=== PATIENT | female | born 1945 | race Hispanic/Latino ===

== ENCOUNTER 2017-09-04 22:42 | Inpatient (IN) | payer OTHER ==
[~2017-09-04] VITALS: Ht 172.7 cm; Wt 79.9 kg
[~2017-09-04 22:42] MED LIST: ASPI-1181 PO; BUDE10.22 IH; Losartan Potassium PO; METO50 PO; NITR0.4T50 SL; PANT40TA25 PO; PRAV20TA4 PO; VERA180T8 PO
[2017-09-04] MEDS ORDERED: ASPIRIN 325 MG TABLET ONE (23:07)
[2017-09-04] MEDS ORDERED: MECLIZINE HCL 25 MG TABLET ONE (23:07)
[2017-09-04] MEDS ORDERED: ONDANSETRON ODT 4 MG TAB ONE (23:07)
[2017-09-04 23:11] LABS: BASOPHILS % (AUTO) 0.6 % (0.0-5.0); EOSINOPHILS % (AUTO) 3.3 % (0.0-8.0); HEMATOCRIT 38.9 % (36-48); LYMPHOCYTES % (AUTO) 41.4 % (21.0-51.0); MEAN CORPUSCULAR HEMOGLOBIN 30.5 pg (27.0-33.0); MEAN CORPUSCULAR HGB CONC 34.1 g/dL (32.0-36.0); MEAN CORPUSCULAR VOLUME 89.5 fL (79-99); MONOCYTES % (AUTO) 12.3 % (3.0-13.0); NEUTROPHILS % (AUTO) 42.4 % (40.0-77.0); PLATELET COUNT (AUTO) 199 K/uL (130-400); RED BLOOD CELL COUNT(AUTO) 4.35 MIL/uL (4.00-5.50); RED CELL DISTRIBUTION WIDTH 13.7 % (11.0-15.5); WHITE BLOOD COUNT (AUTO) 6.5 K/uL (4.8-10.8)
[2017-09-04 23:25] LABS: CREATININE 0.8 mg/dL (0.5-1.5); INR 0.99 (0.85-1.15); PARTIAL THROMBOPLASTIN TIME 24.9 SEC (26.3-35.5); POTASSIUM 3.9 mmol/L (3.5-5.1); PROTHROMBIN TIME 10.4 SEC (9.6-11.6)
[2017-09-04 23:30] LABS: ALBUMIN 4.1 g/dL (3.5-5.0); BILIRUBIN,TOTAL 0.5 mg/dL (0.2-1.0); TOTAL PROTEIN, SERUM 7.6 g/dL (6.0-8.3)
[2017-09-04 23:33] LABS: B-TYPE NATRIURETIC PEPTIDE 388 pg/mL (0-100)
[2017-09-04 23:35] LABS: APPEARANCE,URINE Clear (CLEAR); BILIRUBIN,URINE Negative (NEGATIVE); COLOR,URINE Yellow (YELLOW); GLUCOSE, URINE (UA) Negative (NEGATIVE); KETONES,URINE Negative (NEGATIVE); LEUKOCYTE ESTERASE ,URINE Trace (NEGATIVE); NITRATE,URINE Negative (NEGATIVE); OCCULT BLOOD,URINE Negative (NEGATIVE); PROTEIN,URINE Negative (NEGATIVE)
[2017-09-04 23:49] LABS: RAPID GROUP A STREP NEGATIVE (NEGATIVE)
[2017-09-04 23:50] LABS: RBC,URINE 0-1 /HPF (0-1); WBC,URINE 0-1 /HPF (0-1)
[2017-09-04 23:51] LABS: BACTERIA,URINE Rare /HPF (None Seen)
[2017-09-05 04:15] VITALS: BP 158/83
[2017-09-05] MEDS ORDERED: PRAV40TA3 PO (04:52)
[2017-09-05] MEDS ORDERED: SODIUM CHLORIDE 0.9% 1000ML 1,000 ML IV SCH (07:08)
[2017-09-05] MEDS ORDERED: LACTULOSE 20 GM/30 ML UDCUP PO PRN (07:15)
[2017-09-05] MEDS ORDERED: ACETAMINOPHEN 325 MG TAB PO PRN ×2 (07:15)
[2017-09-05] MEDS ORDERED: MAG HYDROX/AL HYDROX/SIMETH ES 30 ML SUSP UDCUP PO PRN (07:15)
[2017-09-05] MEDS ORDERED: PANTOPRAZOLE SODIUM 40 MG TABLET.DR PO PRN (07:15)
[2017-09-05] MEDS ORDERED: ONDANSETRON HCL 4 MG/2 ML VIAL IV PRN (07:15)
[2017-09-05] MEDS ORDERED: NITROGLYCERIN 0.4 MG SL TAB SL PRN (07:15)
[2017-09-05 08:19] VITALS: BP 154/78
[2017-09-05 08:27] LABS: CREATINE KINASE MB 0.8 ng/mL (0.5-3.6); TROPONIN I 0.21 ng/mL (0.00-0.06)
[2017-09-05] MEDS ORDERED: LIDOCAINE HCL-MPF 1% 2ML VIAL IVP PRN (08:45)
[2017-09-05] MEDS ORDERED: POTASSIUM CHLORIDE 10% ELIXIR 20 MEQ/15 ML UDCUP PO PRN (08:45)
[2017-09-05] MEDS ORDERED: POTASSIUM CHLORIDE 20MEQ/100ML 100 ML IV PRN (08:45)
[2017-09-05] MEDS ORDERED: VERAPAMIL HCL 180 MG PO SCH (09:00)
[2017-09-05] MEDS ORDERED: LOSARTAN 100 MG TABLET PO SCH (09:00)
[2017-09-05] MEDS: ASPIRIN 81 MG EC TAB PO SCH (10:07)
[2017-09-05] MEDS: METOPROLOL TARTRATE 50 MG TAB PO SCH ×2 (10:07→21:01)
[2017-09-05] MEDS: ENOXAPARIN SODIUM 30 MG/0.3 ML SQ SCH (10:09)
[2017-09-05 12:16] VITALS: BP 153/89
[2017-09-05 14:38] LABS: CREATINE KINASE MB 0.8 ng/mL (0.5-3.6); TROPONIN I 0.22 ng/mL (0.00-0.06)
[2017-09-05] MEDS ORDERED: REGADENOSON 0.4 MG/5 ML PF SYG IVP SCH (15:00)
[2017-09-05 16:45] VITALS: BP 150/80
[2017-09-05] MEDS: ATORVASTATIN CALCIUM 20 MG TABLET PO SCH (17:03)
[2017-09-05 20:00] VITALS: BP 118/63
[2017-09-06] VITALS (13 sets, daily range): BP systolic 126–169; BP diastolic 63–85
[2017-09-06 05:50] LABS: CREATININE 0.8 mg/dL (0.5-1.5); POTASSIUM 4.1 mmol/L (3.5-5.1)
[2017-09-06] MEDS: METOPROLOL TARTRATE 50 MG TAB PO SCH ×2 (09:00→20:46)
[2017-09-06] MEDS: ENOXAPARIN SODIUM 30 MG/0.3 ML SQ SCH (09:00)
[2017-09-06] MEDS: ASPIRIN 81 MG EC TAB PO SCH (09:00)
[2017-09-06] MEDS: AMLODIPINE BESYLATE 5 MG TAB PO SCH (09:00)
[2017-09-06] MEDS ORDERED: NITROGLYCERIN 5 MG/ML 10 ML VIAL IV ONE (14:32)
[2017-09-06] MEDS ORDERED: ISOVUE-370 50ML VIAL IV ONE (14:32)
[2017-09-06] MEDS ORDERED: HEPARIN SODIUM 1000UNIT/ML 10ML VIAL ONE (14:32)
[2017-09-06] MEDS ORDERED: IOPAMIDOL-370 100 ML VIAL IV ONE (14:32)
[2017-09-06] MEDS ORDERED: SODIUM BICARB 50MEQ 50ML VIAL ONE (14:32)
[2017-09-06] MEDS ORDERED: LIDOCAINE HCL 2% 20ML ONE (14:33)
[2017-09-06] MEDS ORDERED: MIDAZOLAM HCL 1 MG/ML 2ML VIAL ONE (15:26)
[2017-09-06] MEDS ORDERED: MEPERIDINE-PF 50 MG/ML SYG ONE (15:26)
[2017-09-06] MEDS ORDERED: LABETALOL 20 MG/4 ML DISP.SYRIN IV ONE (15:36)
[2017-09-06] MEDS ORDERED: FURO40TA7 PO (16:33)
[2017-09-06] MEDS ORDERED: SPIR25TA PO (16:33)
[2017-09-06] MEDS ORDERED: Losartan Potassium PO (16:33)
[2017-09-06] MEDS: ATORVASTATIN CALCIUM 20 MG TABLET PO SCH (16:59)
[2017-09-06] MEDS: SPIRONOLACTONE 25 MG TAB PO SCH (20:46)
[2017-09-07] VITALS (10 sets, daily range): BP systolic 96–160; BP diastolic 57–90
[2017-09-07 05:53] LABS: HEMATOCRIT 36.7 % (36-48); MEAN CORPUSCULAR HEMOGLOBIN 31.7 pg (27.0-33.0); MEAN CORPUSCULAR HGB CONC 35.7 g/dL (32.0-36.0); MEAN CORPUSCULAR VOLUME 88.8 fL (79-99); PLATELET COUNT (AUTO) 156 K/uL (130-400); RED BLOOD CELL COUNT(AUTO) 4.14 MIL/uL (4.00-5.50); RED CELL DISTRIBUTION WIDTH 13.8 % (11.0-15.5); WHITE BLOOD COUNT (AUTO) 4.8 K/uL (4.8-10.8)
[2017-09-07 05:58] LABS: CREATININE 0.7 mg/dL (0.5-1.5); POTASSIUM 3.6 mmol/L (3.5-5.1)
[2017-09-07] MEDS: POTASSIUM CHLORIDE 20 MEQ ERTAB PO PRN ×2 (06:24→08:39)
[2017-09-07] MEDS: METOPROLOL TARTRATE 50 MG TAB PO SCH ×2 (08:39→19:22)
[2017-09-07] MEDS: FUROSEMIDE 40 MG TABLET PO SCH (08:39)
[2017-09-07] MEDS: AMLODIPINE BESYLATE 5 MG TAB PO SCH (08:39)
[2017-09-07] MEDS: LOSARTAN 50 MG TABLET PO SCH (08:39)
[2017-09-07] MEDS: SPIRONOLACTONE 25 MG TAB PO SCH ×2 (08:39→19:22)
[2017-09-07] MEDS: ASPIRIN 81 MG EC TAB PO SCH (08:39)
[2017-09-07] MEDS: ATORVASTATIN CALCIUM 20 MG TABLET PO SCH (16:13)
[2017-09-08 04:22] VITALS: BP 141/71
[2017-09-08 07:00] VITALS: BP 154/72
[2017-09-08] MEDS: ASPIRIN 81 MG EC TAB PO SCH (09:10)
[2017-09-08] MEDS: SPIRONOLACTONE 25 MG TAB PO SCH (09:11)
[2017-09-08] MEDS: METOPROLOL TARTRATE 50 MG TAB PO SCH (09:11)
[2017-09-08] MEDS: FUROSEMIDE 40 MG TABLET PO SCH (09:11)
[2017-09-08] MEDS: LOSARTAN 50 MG TABLET PO SCH (09:11)
[2017-09-08] MEDS: AMLODIPINE BESYLATE 5 MG TAB PO SCH (09:12)
[2017-09-08 11:00] VITALS: BP 125/56
== END 2017-09-08 13:20 | disposition home or self-care (01) | DRG 287 ==
LOC: EDH 22:42 → OBSVTOIN 09-05 02:48 → EDHIP 09-05 02:48 → 4AH 09-05 03:53
PROVIDERS: ADMIT Internal Medicine; ATTEND Internal Medicine
PROC: 4A023N7 Measurement of Cardiac Sampling and Pressure, Left Heart, Percutaneous Approach (ICD-10-PCS; principal; 2017-09-06)
PROC: B2151ZZ Fluoroscopy of Left Heart using Low Osmolar Contrast (ICD-10-PCS; 2017-09-06)
PROC: B2111ZZ Fluoroscopy of Multiple Coronary Arteries using Low Osmolar Contrast (ICD-10-PCS; 2017-09-06)
DX: I25.119 Atherosclerotic heart disease of native coronary artery with unspecified angina pectoris (principal); E88.81 Metabolic syndrome and other insulin resistance; G62.9 Polyneuropathy, unspecified; I42.9 Cardiomyopathy, unspecified; I48.3 Typical atrial flutter; I48.91 Unspecified atrial fibrillation; E66.9 Obesity, unspecified; E78.2 Mixed hyperlipidemia; I48.92 Unspecified atrial flutter; I13.10 Hypertensive heart and chronic kidney disease without heart failure, with stage 1 through stage 4 chronic kidney disease, or unspecified chronic kidney disease; M81.0 Age-related osteoporosis without current pathological fracture; J45.909 Unspecified asthma, uncomplicated; N18.9 Chronic kidney disease, unspecified; Z68.26 Body mass index [BMI] 26.0-26.9, adult; I25.2 Old myocardial infarction; Z82.3 Family history of stroke; Z82.49 Family history of ischemic heart disease and other diseases of the circulatory system; Z90.710 Acquired absence of both cervix and uterus
CPT/HCPCS: 36415; 71045; 78452; 80048; 80053; 81001; 82550; 82553; 83605; 83874; 83880; 84132; 84484; 85025; 85027; 85610; 85730; 87804; 87880; 93005; 93017; 93306; 93458; 96374; 99152; 99153; A9500; C1760; C1894; J1644; J1650; J2175; J2250; J2785; J3490; J7030; Q9967

== ENCOUNTER → 2017-12-19 | Outpatient (CLI) | payer OTHER ==
[~2017-12-19] MED LIST changes: -BUDE10.22 IH; +FURO40TA7 PO; +MECL12.585 PO; -PRAV20TA4 PO; +PRAV40TA3 PO; +SPIR25TA PO; -VERA180T8 PO
== END | disposition home or self-care (01) ==
LOC: SHCH 10:00
PROVIDERS: ATTEND Internal Medicine Cardiovascular Disease
DX: I42.0 Dilated cardiomyopathy (principal)
CPT/HCPCS: 93306

== ENCOUNTER 2017-12-20 20:27 | Observation (INO) | payer OTHER ==
[~2017-12-20] VITALS: Ht 157.5 cm; Wt 80.4 kg
[~2017-12-20 20:27] MED LIST changes: -MECL12.585 PO
[2017-12-20] MEDS ORDERED: MECLIZINE HCL 25 MG TABLET ONE (21:00)
[2017-12-20 21:28] LABS: CREATININE 1.1 mg/dL (0.5-1.5); POTASSIUM 4.1 mmol/L (3.5-5.1)
[2017-12-20 21:33] LABS: ALBUMIN 4.2 g/dL (3.5-5.0); BILIRUBIN,TOTAL 0.5 mg/dL (0.2-1.0); TOTAL PROTEIN, SERUM 7.9 g/dL (6.0-8.3)
[2017-12-20 21:53] LABS: BASOPHILS % (AUTO) 1.7 % (0.0-5.0); EOSINOPHILS % (AUTO) 1.5 % (0.0-8.0); LYMPHOCYTES % (AUTO) 21.6 % (21.0-51.0); MEAN CORPUSCULAR HEMOGLOBIN 32.4 pg (27.0-33.0); MEAN CORPUSCULAR HGB CONC 34.9 g/dL (32.0-36.0); MEAN CORPUSCULAR VOLUME 92.8 fL (79-99); MONOCYTES % (AUTO) 9.8 % (3.0-13.0); NEUTROPHILS % (AUTO) 65.4 % (40.0-77.0); NUCLEATED RED BLOOD CELLS 0.1 % (0.0-0.19); PLATELET COUNT (AUTO) 172 K/uL (130-400); RED BLOOD CELL COUNT(AUTO) 3.98 MIL/uL (4.00-5.50); RED CELL DISTRIBUTION WIDTH 13.6 % (11.0-15.5); WHITE BLOOD COUNT (AUTO) 4.3 K/uL (4.8-10.8)
[2017-12-21 00:41] LABS: CREATINE KINASE MB 1.1 ng/mL (0.5-3.6); TROPONIN I 0.14 ng/mL (0.00-0.06)
[2017-12-21] MEDS: SODIUM CHLORIDE 0.9% 1000ML 1,000 ML IV SCH ×3 (01:00→23:42)
[2017-12-21] MEDS ORDERED: NITROGLYCERIN 0.4 MG SL TAB SL PRN (01:00)
[2017-12-21] MEDS ORDERED: LACTULOSE 20 GM/30 ML UDCUP PO PRN (01:00)
[2017-12-21] MEDS ORDERED: ONDANSETRON HCL 4 MG/2 ML VIAL IVP PRN (01:00)
[2017-12-21] MEDS ORDERED: POTASSIUM CHLORIDE 20 MEQ ERTAB PO PRN (01:00)
[2017-12-21] MEDS ORDERED: ACETAMINOPHEN 325 MG TAB PO PRN ×2 (01:00)
[2017-12-21] MEDS ORDERED: POTASSIUM CHLORIDE 20MEQ/100ML 100 ML IV PRN ×2 (01:00→02:15)
[2017-12-21] MEDS ORDERED: POTASSIUM CHLORIDE 10% ELIXIR 20 MEQ/15 ML UDCUP PO PRN (01:00)
[2017-12-21] MEDS ORDERED: CLONIDINE HCL 0.1 MG TABLET PO PRN (01:00)
[2017-12-21] MEDS ORDERED: HYDRALAZINE HCL 20 MG/ML VIAL IV PRN (02:15)
[2017-12-21] MEDS ORDERED: MECLIZINE HCL 25 MG TABLET PO PRN (02:15)
[2017-12-21] MEDS ORDERED: LIDOCAINE HCL-MPF 1% 2ML VIAL IVP PRN (02:15)
[2017-12-21 05:40] LABS: HEMATOCRIT 34.4 % (36-48); MEAN CORPUSCULAR HEMOGLOBIN 32.3 pg (27.0-33.0); MEAN CORPUSCULAR HGB CONC 35.2 g/dL (32.0-36.0); MEAN CORPUSCULAR VOLUME 91.6 fL (79-99); NUCLEATED RED BLOOD CELLS 0.1 % (0.0-0.19); PLATELET COUNT (AUTO) 146 K/uL (130-400); RED BLOOD CELL COUNT(AUTO) 3.76 MIL/uL (4.00-5.50); RED CELL DISTRIBUTION WIDTH 13.4 % (11.0-15.5); WHITE BLOOD COUNT (AUTO) 4.5 K/uL (4.8-10.8)
[2017-12-21] MEDS ORDERED: SODIUM CHLORIDE 0.9% 1000ML 1,000 ML IV ONE (05:42)
[2017-12-21 05:52] LABS: HEMOGLOBIN A1C 6.2 % (4.0-6.0)
[2017-12-21] MEDS ORDERED: IPRATROPIUM/ALBUTEROL SULFATE 3 ML SOLUTION IH SCH (06:00)
[2017-12-21 06:09] LABS: CREATINE KINASE MB 0.9 ng/mL (0.5-3.6); CREATININE 0.9 mg/dL (0.5-1.5); POTASSIUM 4.1 mmol/L (3.5-5.1); THYROID STIMULATING HORMONE 1.46 uIU/mL (0.36-3.74); TROPONIN I 0.15 ng/mL (0.00-0.06)
[2017-12-21] MEDS ORDERED: IPRATROPIUM/ALBUTEROL SULFATE 3 ML SOLUTION IH PRN (07:06)
[2017-12-21] MEDS ORDERED: MECLIZINE HCL 25 MG TABLET ONE (08:51)
[2017-12-21] MEDS ORDERED: ASPIRIN 325 MG TABLET ONE (08:51)
[2017-12-21] MEDS: FAMOTIDINE 20MG TAB 20 MG TAB PO SCH ×2 (09:00→20:22)
[2017-12-21] MEDS ORDERED: ASPIRIN 325 MG TABLET PO SCH (09:00)
[2017-12-21] MEDS ORDERED: LOSARTAN 50 MG TABLET PO SCH (14:00)
[2017-12-21] MEDS ORDERED: LOSARTAN 50 MG TABLET ONE (14:40)
[2017-12-21] MEDS ORDERED: FAMOTIDINE 20MG TAB 20 MG TAB ONE (14:40)
[2017-12-21 19:23] VITALS: BP 148/61
[2017-12-21] MEDS: METOPROLOL TARTRATE 50 MG TAB PO SCH (20:22)
[2017-12-21] MEDS ORDERED: ATORVASTATIN CALCIUM 20 MG TABLET PO SCH (21:00)
[2017-12-21 23:37] VITALS: BP 158/67
[2017-12-22 03:46] VITALS: BP 135/66
[2017-12-22 03:52] LABS: BASOPHILS % (AUTO) 0.9 % (0.0-5.0); EOSINOPHILS % (AUTO) 2.6 % (0.0-8.0); HEMATOCRIT 34.9 % (36-48); LYMPHOCYTES % (AUTO) 31.7 % (21.0-51.0); MEAN CORPUSCULAR HEMOGLOBIN 33.6 pg (27.0-33.0); MEAN CORPUSCULAR HGB CONC 36.6 g/dL (32.0-36.0); MEAN CORPUSCULAR VOLUME 91.7 fL (79-99); NEUTROPHILS % (AUTO) 51.8 % (40.0-77.0); NUCLEATED RED BLOOD CELLS 0.1 % (0.0-0.19); PLATELET COUNT (AUTO) 155 K/uL (130-400); RED CELL DISTRIBUTION WIDTH 13.7 % (11.0-15.5); WHITE BLOOD COUNT (AUTO) 4.4 K/uL (4.8-10.8)
[2017-12-22 04:23] LABS: CREATINE KINASE MB 0.8 ng/mL (0.5-3.6); CREATININE 0.8 mg/dL (0.5-1.5); POTASSIUM 4.5 mmol/L (3.5-5.1); TROPONIN I 0.16 ng/mL (0.00-0.06)
[2017-12-22 07:00] VITALS: BP 128/57
[2017-12-22] MEDS ORDERED: METOPROLOL TARTRATE 50 MG TAB PO SCH (09:00)
[2017-12-22] MEDS ORDERED: SPIRONOLACTONE 25 MG TAB PO SCH (09:00)
[2017-12-22] MEDS ORDERED: PANTOPRAZOLE SODIUM 40 MG TABLET.DR PO PRN (09:00)
[2017-12-22] MEDS ORDERED: ASPIRIN 325 MG TABLET PO SCH (09:00)
[2017-12-22] MEDS ORDERED: FUROSEMIDE 40 MG TABLET PO SCH (09:00)
[2017-12-22] MEDS ORDERED: LOSARTAN 50 MG TABLET PO SCH (09:00)
[2017-12-22] MEDS ORDERED: NITROGLYCERIN 0.4 MG SL TAB SL PRN (09:00)
[2017-12-22] MEDS ORDERED: ASPIRIN 81 MG EC TAB PO SCH ×2 (09:00)
[2017-12-22] MEDS ORDERED: MECL12.585 PO (09:04)
[2017-12-22] MEDS: FAMOTIDINE 20MG TAB 20 MG TAB PO SCH (09:19)
[2017-12-22] MEDS: METOPROLOL TARTRATE 50 MG TAB PO SCH (09:19)
[2017-12-22 11:00] VITALS: BP 143/68
[2017-12-22] MEDS ORDERED: ATORVASTATIN CALCIUM 20 MG TABLET PO SCH (17:00)
== END 2017-12-22 12:30 | disposition home or self-care (01) ==
LOC: EDH 20:27 → EDHIP 12-21 00:35 → 2AH 12-21 18:40
PROVIDERS: ADMIT Internal Medicine; ATTEND Internal Medicine
DX: H81.10 Benign paroxysmal vertigo, unspecified ear (principal); I13.0 Hypertensive heart and chronic kidney disease with heart failure and stage 1 through stage 4 chronic kidney disease, or unspecified chronic kidney disease; I50.9 Heart failure, unspecified; N18.2 Chronic kidney disease, stage 2 (mild); E78.5 Hyperlipidemia, unspecified; I48.0 Paroxysmal atrial fibrillation; I25.10 Atherosclerotic heart disease of native coronary artery without angina pectoris; I25.2 Old myocardial infarction; K21.9 Gastro-esophageal reflux disease without esophagitis; E88.81 Metabolic syndrome and other insulin resistance; M81.0 Age-related osteoporosis without current pathological fracture; J45.909 Unspecified asthma, uncomplicated; G62.9 Polyneuropathy, unspecified; I25.5 Ischemic cardiomyopathy; I34.0 Nonrheumatic mitral (valve) insufficiency; I48.92 Unspecified atrial flutter; Z82.49 Family history of ischemic heart disease and other diseases of the circulatory system; Z90.710 Acquired absence of both cervix and uterus; Z79.82 Long term (current) use of aspirin; Z79.899 Other long term (current) drug therapy
CPT/HCPCS: 36415 ×3; 80048 ×2; 80053; 80061; 82550 ×3; 82553 ×3; 83036; 83874 ×3; 84443; 84484 ×3; 85025 ×2; 85027; 93005 ×4; 94664; 97116; 97161; 99285; G0378 ×36; G8978; G8979; G8980; G8981; G8982; G8983; J7030

== ENCOUNTER → 2018-07-10 | Outpatient (CLI) | payer OTHER ==
[~2018-07-10] MED LIST changes: +MECL12.585 PO
== END | disposition home or self-care (01) ==
LOC: RAH 13:07
PROVIDERS: ATTEND Internal Medicine
DX: R68.84 Jaw pain (principal); M79.601 Pain in right arm
CPT/HCPCS: 70140; 73090

== ENCOUNTER 2020-09-07 05:59 | Day surgery (SDC) | payer OTHER ==
[2020-09-04 09:13] LABS: BASOPHILS % (AUTO) 0.8 % (0.0-5.0); EOSINOPHILS % (AUTO) 2.6 % (0.0-8.0); HEMATOCRIT 48.1 % (36-48); LYMPHOCYTES % (AUTO) 28.7 % (21.0-51.0); MEAN CORPUSCULAR HEMOGLOBIN 29.6 pg (27.0-33.0); MEAN CORPUSCULAR HGB CONC 32.2 g/dL (32.0-36.0); MEAN CORPUSCULAR VOLUME 91.8 fL (79-99); MONOCYTES % (AUTO) 11.2 % (3.0-13.0); NEUTROPHILS % (AUTO) 56.4 % (40.0-77.0); PLATELET COUNT (AUTO) 144 K/uL (130-400); RED BLOOD CELL COUNT(AUTO) 5.24 MIL/uL (4.00-5.50); RED CELL DISTRIBUTION WIDTH 14.2 % (11.0-15.5); WHITE BLOOD COUNT (AUTO) 3.8 K/uL (4.8-10.8)
[2020-09-04 09:26] LABS: CREATININE 0.9 mg/dL (0.5-1.5); INR 1.09 (0.85-1.15); POTASSIUM 5.1 mmol/L (3.5-5.1); PROTHROMBIN TIME 11.8 SEC (9.6-11.6)
[2020-09-04 11:30] VITALS: BP 139/69
[~2020-09-07] VITALS: Ht 157.5 cm; Wt 78.2 kg
[2020-09-07] VITALS (12 sets, daily range): BP systolic 100–145; BP diastolic 49–79
[~2020-09-07 05:59] MED LIST changes: +ALBU8.5H8 IH; -ASPI-1181 PO; +ASPI-1443 PO; +ATOR20TA65 PO; +FLUT1AER IH; -FURO40TA7 PO; -Losartan Potassium PO; -MECL12.585 PO; -PANT40TA25 PO; +PANT40TA54 PO; +POTA-79 PO; -PRAV40TA3 PO; +SACU1TAB PO
[2020-09-07] MEDS ORDERED: SODIUM CHLORIDE 0.9% 1000ML 1,000 ML IV ONE (06:11)
[2020-09-07] MEDS ORDERED: BUPIVACAINE/PF 0.25% 30ML VIAL IJ ONE (07:17)
[2020-09-07] MEDS ORDERED: IODIXANOL 320 MG/ML 100 ML VIAL ONE (07:18)
[2020-09-07] MEDS ORDERED: MEPERIDINE-PF 25 MG/ML SYG ONE (07:18)
[2020-09-07] MEDS ORDERED: MIDAZOLAM HCL 1 MG/ML 2ML VIAL ONE ×3 (07:18→07:54)
[2020-09-07] MEDS ORDERED: CEFAZOLIN SODIUM 1 GM VIAL ONE (07:18)
[2020-09-07] MEDS ORDERED: LIDOCAINE HCL 1% MDV 50ML VIAL ONE (07:19)
[2020-09-07] MEDS ORDERED: MEPERIDINE-PF 50 MG/ML SYG ONE (07:44)
[2020-09-07] MEDS ORDERED: ACETAMINOPHEN 325 MG TAB ONE (14:51)
[2020-09-07] MEDS ORDERED: CEFAZOLIN SODIUM 1 GM VIAL IVP SCH (15:30)
== END 2020-09-07 16:25 | disposition home or self-care (01) ==
LOC: DAH 05:59
PROVIDERS: ATTEND Internal Medicine Cardiovascular Disease
DX: I42.8 Other cardiomyopathies (principal); I50.42 Chronic combined systolic (congestive) and diastolic (congestive) heart failure; I44.1 Atrioventricular block, second degree; I44.7 Left bundle-branch block, unspecified; I45.10 Unspecified right bundle-branch block; I11.0 Hypertensive heart disease with heart failure; E78.5 Hyperlipidemia, unspecified; I48.92 Unspecified atrial flutter; E66.9 Obesity, unspecified; Z68.32 Body mass index [BMI] 32.0-32.9, adult; Z79.01 Long term (current) use of anticoagulants; Z79.899 Other long term (current) drug therapy; Z79.82 Long term (current) use of aspirin
CPT/HCPCS: 33225; 33249; 36415; 71045; 80048; 85025; 85610; 85730; 93005; A4215; A4216; A4221; A4222; A4223 ×3; A4606; A4663; A6260; C1769 ×3; C1882; C1894; C1895; C1896; C1900; J0690 ×2; J2175 ×2; J2250 ×3; J3490 ×2; J7030; Q9967; 99156; 99157

== ENCOUNTER → 2022-03-29 | Outpatient (CLI) | payer OTHER ==
[~2022-03-29] MED LIST changes: -POTA-79 PO
== END | disposition home or self-care (01) ==
LOC: SHCH 10:44
PROVIDERS: ATTEND Internal Medicine Cardiovascular Disease
DX: I34.0 Nonrheumatic mitral (valve) insufficiency (principal); I50.20 Unspecified systolic (congestive) heart failure; E78.5 Hyperlipidemia, unspecified; E66.9 Obesity, unspecified; I11.0 Hypertensive heart disease with heart failure; I50.22 Chronic systolic (congestive) heart failure
CPT/HCPCS: 93306

== ENCOUNTER → 2022-10-01 | Outpatient (CLI) | payer OTHER | END | disposition home or self-care (01) | LOC: SHCH 09:24 | PROVIDERS: ATTEND Internal Medicine Cardiovascular Disease | DX: I87.2 Venous insufficiency (chronic) (peripheral) (principal); I87.1 Compression of vein | CPT/HCPCS: 93970 ==

== ENCOUNTER 2023-11-10 10:47 | Day surgery (SDC) | payer OTHER ==
[2023-11-06 09:08] LABS: BASOPHILS # (AUTO) 0.02 K/uL (0.00-0.20); BASOPHILS % (AUTO) 0.4 % (0.0-5.0); EOSINOPHILS # (AUTO) 0.08 K/uL (0.00-0.70); EOSINOPHILS % (AUTO) 1.5 % (0.0-8.0); HEMATOCRIT 38.9 % (36-48); IMMATURE GRANULOCYTE ABSOLUTE 0.01 K/uL (0-1); LYMPHOCYTES # (AUTO) 1.4 K/uL (1.0-4.8); LYMPHOCYTES % (AUTO) 26.2 % (21.0-51.0); MEAN CORPUSCULAR HEMOGLOBIN 31.1 pg (27.0-33.0); MEAN CORPUSCULAR HGB CONC 32.6 g/dL (32.0-36.0); MEAN CORPUSCULAR VOLUME 95.1 fL (79-99); MONOCYTES # (AUTO) 0.5 K/uL (0.1-1.0); MONOCYTES % (AUTO) 9.6 % (3.0-13.0); NEUTROPHILS # (AUTO) 3.3 K/uL (1.8-7.7); NEUTROPHILS % (AUTO) 62.1 % (40.0-77.0); PLATELET COUNT (AUTO) 183 K/uL (130-400); RED BLOOD CELL COUNT(AUTO) 4.09 MIL/uL (4.00-5.50); RED CELL DISTRIBUTION WIDTH 12.5 % (11.0-15.5); WHITE BLOOD COUNT (AUTO) 5.3 K/uL (4.8-10.8)
[2023-11-06 09:12] VITALS: BP 167/88; PULSE 70; RESP 16
[2023-11-06 09:21] LABS: INR 1.01 (0.85-1.15); PROTHROMBIN TIME 11.9 SEC (9.6-11.6)
[2023-11-06 09:22] LABS: PARTIAL THROMBOPLASTIN TIME 32.4 SEC (26.3-35.5)
[2023-11-06 09:36] LABS: CREATININE 0.8 mg/dL (0.5-1.0); POTASSIUM 4.1 mmol/L (3.5-5.1)
[2023-11-06 09:53] LABS: B-TYPE NATRIURETIC PEPTIDE 300 pg/mL (0-100)
[2023-11-10] VITALS (12 sets, daily range): BP systolic 120–160; BP diastolic 59–93; PULSE 67–84; RESP 14–18
[~2023-11-10] VITALS: Ht 160 cm; Wt 81.6 kg
[~2023-11-10 10:47] MED LIST changes: -ALBU8.5H8 IH; +APIX5TAB PO; -ASPI-1443 PO; +CHOL-34 PO; +FISH1CAP65 PO; -FLUT1AER IH; +FURO20TA4 PO; +METO-391 PO; -METO50 PO; +MONT-39 PO; -NITR0.4T50 SL; -PANT40TA54 PO; -SACU1TAB PO; +SACU1TAB7 PO; +SOTA80TA PO; +[UNRECOGNIZED DRUG - CODE] PO
[2023-11-10] MEDS: 0.9%NACL 1000ML 1,000 ML IV ONE (12:37)
[2023-11-10] MEDS ORDERED: FLUMAZENIL 0.1MG/1ML 5ML VIAL IV ONE (12:40)
[2023-11-10] MEDS ORDERED: NALOXONE HCL 0.4 MG/1 ML ML ONE (12:40)
[2023-11-10] MEDS: LIDOCAINE HCL 2% VISCOUS 15 ML UDCUP PO ONE (12:41)
[2023-11-10] MEDS: FENTANYL CITRATE PF 50 MCG/1 ML 2ML VIAL IVP ONE (14:28)
[2023-11-10] MEDS: MIDAZOLAM HCL 1 MG/ML 2ML VIAL IVP ONE (14:29)
== END 2023-11-10 14:35 | disposition home or self-care (01) ==
LOC: DAH 10:47
PROVIDERS: ATTEND Internal Medicine Interventional Cardiology
DX: I48.11 Longstanding persistent atrial fibrillation (principal); I34.0 Nonrheumatic mitral (valve) insufficiency; I42.8 Other cardiomyopathies; I45.10 Unspecified right bundle-branch block; I11.0 Hypertensive heart disease with heart failure; I50.32 Chronic diastolic (congestive) heart failure; I25.10 Atherosclerotic heart disease of native coronary artery without angina pectoris; I25.2 Old myocardial infarction; E78.2 Mixed hyperlipidemia; G60.8 Other hereditary and idiopathic neuropathies; Z79.899 Other long term (current) drug therapy; Z79.01 Long term (current) use of anticoagulants; Z98.890 Other specified postprocedural states; Z90.710 Acquired absence of both cervix and uterus; Z68.32 Body mass index [BMI] 32.0-32.9, adult
CPT/HCPCS: 80048; 83880; 85025; 85610; 85730; 36415; 71045; 93005; 93325; 93312; J3010; J7030; J2250; A4615; A4215 ×2; A4223 ×3; A4657; A7002; A4222; A4221; A4663; A4216; A4606; 99152; J2310; J3490; G0500